=== PATIENT | female | born 1970 | race Caucasian/White ===

== ENCOUNTER 2016-09-28 09:16 | Emergency (ER) | payer OTHER ==
[~2016-09-28] VITALS: Ht 177.8 cm; Wt 93.0 kg
[~2016-09-28 09:16] MED LIST: DYAZ37.57 PO; IBUP800T23 PO; LEXA10TA PO; LOVA20TA PO; PANT20 PO
[2016-09-28 09:21] VITALS: BP 139/75; PULSE 74; RESP 16; TEMP 97.8; O2SAT 98
[2016-09-28] MEDS ORDERED: LEXA20TA PO (09:32)
[2016-09-28] MEDS ORDERED: PROT40TA PO (09:32)
--- NOTE | 2016-09-28 09:39 | PD ---
HPI Chief Complaint: Abdominal Pain Time Seen by Provider: 09:28 Travel History International Travel<30 days: No Contact w/Intl Traveler<30days: No Traveled to known affect area: No History of Present Illness HPI This patient complains of abdominal pain. Location is bilateral lower quadrant. Duration is 48 hours. She's had some nausea and vomiting. She had diarrhea yesterday but none today. Denies fever. She's had a hysterectomy. Her appendix is in position. No alleviating factors. Symptom severity is moderate PFSH Past Medical History Depression: Yes Heart Rhythm Problems: Yes Cancer: No Cardiac Catheterization: No Cardiovascular Problems: Yes High Cholesterol: No Congestive Heart Failure: No Diabetes: No Diminished Hearing: No Gastrointestinal Disorders: Yes GERD: Yes Glaucoma: No Hepatitis: No Hiatal Hernia: No Hypertension: Yes Respiratory: No Thyroid Disease: No Tetanus Vaccination: > 5 Years Influenza Vaccination: Yes ?: Not Past Surgical History Coronary Artery Bypass Graft: No Gynecologic Surgery: Yes () Hysterectomy: Yes Oral Surgery: Yes (TONSILS) Pacemaker: No Tonsillectomy: Yes Other Surgery: Yes Family History Family Myocardial Infarction: Yes Social History Alcohol Use: Yes (2-3 TIMES A WEEK) Tobacco Use: No Substance Use: No Allergies-Medications (Allergen,Severity, Reaction): Coded Allergies: No Known Allergies (Verified , 09/28/16) Reported Meds & Prescriptions Reported Meds & Active Scripts Active Reported Lexapro (Escitalopram Oxalate) 20 Mg Tab 20 Mg PO DAILY Protonix (Pantoprazole Sodium) 40 Mg Tab 40 Mg PO DAILY Review of Systems General / Constitutional: No: Fever Eyes: No: Visual changes HENT: No: Headaches Cardiovascular: No: Chest Pain or Discomfort Respiratory: No: Shortness of Breath Gastrointestinal: Positive: Nausea, Vomiting, Diarrhea, Abdominal Pain Genitourinary: No: Dysuria Musculoskeletal: No: Pain Skin: No Rash Neurologic: No: Weakness Psychiatric: No: Depression Endocrine: No: Polydipsia Hematologic/Lymphatic: No: Easy Bruising Physical Exam Narrative GENERAL: Well-nourished, well-developed patient with abdominal cramping. SKIN: Focused skin assessment reveals no rash and nodules. Skin is Warm and dry. HEAD: Atraumatic. Normocephalic. EYES: Pupils equal and round. No scleral icterus. No injection or drainage. ENT: No nasal bleeding or discharge. Mucous membranes pink and moist. NECK: Trachea midline. No JVD. CARDIOVASCULAR: Regular rate and rhythm. No murmur appreciated. RESPIRATORY: No accessory muscle use. Clear to auscultation. Breath sounds equal bilaterally. GASTROINTESTINAL: Abdomen soft, bilateral lower quadrants are tender without rebound or guarding, nondistended. Hepatic and splenic margins not palpable. MUSCULOSKELETAL: No obvious deformities. No clubbing. No cyanosis. No edema. NEUROLOGICAL: Awake and alert. No obvious cranial nerve deficits. Motor grossly within normal limits. Normal speech. PSYCHIATRIC: Appropriate mood and affect; insight and judgment normal. Data Data Last Documented VS Vital Signs Date Time Temp Pulse Resp B/P Pulse Ox O2 Delivery O2 Flow Rate FiO2 09/28/16 09:21 97.8 74 16 139/75 98 Orders Basic Metabolic Panel (Bmp) (09/28/16 09:35) Complete Blood Count With Diff (09/28/16 09:35) Prothrombin Time / Inr (Pt) (09/28/16 09:35) Act Partial Throm Time (Ptt) (09/28/16 09:35) Ct Abd/Pel W Iv Contrast(Rout) (09/28/16 09:35) Iv Access Insert/Monitor (09/28/16 09:35) NPO (09/28/16 09:35) Ondansetron Inj (Zofran Inj) (09/28/16 09:45) Sodium Chloride 0.9% Flush (Ns Flush) (09/28/16 09:45) Iohexol 350 Inj (Omnipaque 350 Inj) (09/28/16 10:28) Labs Laboratory Tests Test 09/28/16 09:45 White Blood Count 8.4 TH/MM3 Red Blood Count 4.41 MIL/MM3 Hemoglobin 13.5 GM/DL Hematocrit 39.0 % Mean Corpuscular Volume 88.4 FL Mean Corpuscular Hemoglobin 30.6 PG Mean Corpuscular Hemoglobin 34.6 % Concent Red Cell Distribution Width 11.6 % Platelet Count 267 TH/MM3 Mean Platelet Volume 7.9 FL Neutrophils (%) (Auto) 77.0 % Lymphocytes (%) (Auto) 14.8 % Monocytes (%) (Auto) 4.3 % Eosinophils (%) (Auto) 0.5 % Basophils (%) (Auto) 3.4 % Neutrophils # (Auto) 6.5 TH/MM3 Lymphocytes # (Auto) 1.2 TH/MM3 Monocytes # (Auto) 0.4 TH/MM3 Eosinophils # (Auto) 0.0 TH/MM3 Basophils # (Auto) 0.3 TH/MM3 CBC Comment DIFF FINAL Differential Comment Prothrombin Time 10.7 SEC Prothromb Time International 1.0 RATIO Ratio Activated Partial 26.6 SEC Thromboplast Time Sodium Level 142 MEQ/L Potassium Level 3.9 MEQ/L Chloride Level 107 MEQ/L Carbon Dioxide Level 26.2 MEQ/L Anion Gap 9 MEQ/L Blood Urea Nitrogen 9 MG/DL Creatinine 0.81 MG/DL Estimat Glomerular Filtration 76 ML/MIN Rate Random Glucose 99 MG/DL Calcium Level 8.7 MG/DL [facility] Medical Decision Making Medical Screen Exam Complete: Yes Emergency Medical Condition: Yes Medical Record Reviewed: Yes Differential Diagnosis Colitis, appendicitis, ileus Narrative Course I have reviewed the patient's electronic medical record. IV placed CBC is normal metabolic profile is normal Coagulation studies are normal CT of abdomen and pelvis with IV contrast does not show any significant etiology to explain her pain. The: Is not inflamed obstructed. No inflammatory changes in the right lower quadrant to suggest appendicitis. Discussed her incidental liver cyst findings. I gave her IV Zofran Zofran prescribed. Primary care follow-up recommended Diagnosis Primary Impression: Abdominal pain, acute, bilateral lower quadrant Additional Instructions: The patient was advised to follow up with their physician and return if they worsen. Med/Other Pt SpecificInfo: Prescription(s) given Scripts Ondansetron (Zofran)4 Mg Tab4 Mg PO Q6HR PRN (NAUSEA OR VOMITING) #12 TAB Ref 0 Prov:Danilo Ureña MD 09/28/16 Disposition: 01 DISCHARGE HOME Condition: Stable Danilo Ureña MD Sep 28, 2016 09:39
[2016-09-28] MEDS ORDERED: ONDANSETRON HCL 4 MG/2 ML VIAL IVP ONE (09:45)
[2016-09-28] MEDS ORDERED: SODIUM CHLORIDE 0.9% FLUSH 10 ML FLUSH IV FLUSH PRN (09:45)
[2016-09-28 09:58] LABS: AUTOMATED NEUTROPHIL # 6.5 TH/MM3 (1.8-7.7); BASOPHIL # 0.3 TH/MM3 (0-0.2); BASOPHIL % 3.4 % (0.0-2.0); EOSINOPHIL % 0.5 % (0.0-4.0); HEMO FLAGS DIFF FINAL; LYMPH % 14.8 % (9.0-44.0); LYMPHOCYTE # 1.2 TH/MM3 (1.0-4.8); MEAN CELL VOLUME 88.4 FL (80.0-100.0); MEAN CORPUSCULAR HEMOGLOBIN 30.6 PG (27.0-34.0); MEAN CORPUSCULAR HGB CONC 34.6 % (32.0-36.0); MONO % 4.3 % (0.0-8.0); PLATELET COUNT 267 TH/MM3 (150-450); RED BLOOD COUNT 4.41 MIL/MM3 (4.00-5.30); RED CELL DISTRIBUTION WIDTH 11.6 % (11.6-17.2); WHITE BLOOD COUNT 8.4 TH/MM3 (4.0-11.0)
[2016-09-28 10:06] LABS: POTASSIUM 3.9 MEQ/L (3.5-5.1)
[2016-09-28 10:09] LABS: BICARBONATE 26.2 MEQ/L (21.0-32.0)
[2016-09-28 10:10] LABS: APTT (PATIENT) 26.6 SEC (24.3-30.1); PROTHROMBIN TIME - PATIENT 10.7 SEC (9.8-11.6)
[2016-09-28] MEDS ORDERED: IOHEXOL 350 MG/ML 10 ML VIAL (for RAD DIAG) IV ONE (10:28)
--- NOTE | 2016-09-28 10:55 | RADHPO ---
EXAM DATE/TIME: 09/28/2016 09:58 [facility] COMPARISON: No previous studies available for comparison. INDICATIONS : Lower abdominal pain radiating to mid abdomen. IV CONTRAST: 95 cc Omnipaque 350 (iohexol) IV ORAL CONTRAST: No oral contrast ingested. RADIATION DOSE: 19.31 CTDIvol (mGy) MEDICAL HISTORY : Hypertension. Gastroesophageal reflux disease. SURGICAL HISTORY : Hysterectomy. section. ENCOUNTER: Initial ACUITY: 3 days PAIN SCALE: 5/10 LOCATION: Mid abdomen TECHNIQUE: Volumetric scanning of the abdomen and pelvis was performed. Using automated exposure control and ad justment of the mA and/or kV according to patient size, radiation dose was kept as low as reasonably achievable to obtain optimal diagnostic quality images. FINDINGS: Lung bases are clear. Cystic mass is seen in the dome of the liver measuring 2.2 cm, incompletely ev aluated on today's exam. A second smaller 1.1 cm predominantly cystic mass is seen laterally in the left lobe. A third smaller mass is seen in the right lobe. The spleen, pancreas, adrenal glands are unremarkable. Gallbladder appears normal. There is symmetrical renal function. Diverticula are present in the ascending colon. Transverse and descending colon are unremarkable. Pelvic contents are remarkable only for small cystic masses in both adnexal regions. Largest measuri ng 2.15 cm. There is no free fluid. I do not see an etiology for the patient's abdominal pain. Nonspecific findings in the abdomen and p mervin. CONCLUSION: I do not see an etiology for patient's lower abdominal pain. There are no significant inflammatory c hanges identified. Scattered diverticula are noted. Small cystic masses are seen in both adnexal regions. Panfilo Alcazar MD FACR on September 28, 2016 at 10:41 Board Certified Radiologist. This report was verified electronically.
[2016-09-28] MEDS ORDERED: ZOFR4TAB PO (11:10)
[2016-09-28 11:15] VITALS: BP 134/62; PULSE 70; RESP 16; O2SAT 98
== END 2016-09-28 11:25 | disposition home or self-care (01) ==
LOC: PHED 09:16
DX: R10.30 Lower abdominal pain, unspecified (principal); R11.2 Nausea with vomiting, unspecified; R19.7 Diarrhea, unspecified
CPT/HCPCS: 74177; 80048; 85025; 85610; 85730; 96374; 99285; J2405; Q9967